=== PATIENT | male | born 1955 | race Caucasian/White ===

== ENCOUNTER 2017-01-25 18:02 | Inpatient (IN) | payer MEDICAID ==
[~2017-01-25] VITALS: Ht 175.3 cm; Wt 63.5 kg
--- NOTE | 2017-01-25 18:10 | NUR ---
R SIDED FACIAL HEMATOMA AND TENDERNESS TO R U Q ABD S/P "I FELL OFF A BENCH WHILE SLEEPING LAST NIGHT". SEEN BY PA AT BS FOR EVAL. NOTED R FOREHEAD LAC. PT AAOX3, ABLE TO FOLLOW COMMANDS. VSS. DENIES HEAD TRAUMA. SAFETY AND COMFORT MEASURES PROVIDED. WILL MONITOR.
--- NOTE | 2017-01-25 19:14 | NUR ---
RECEIVED REPORT FROM CHEVY SHIPMAN FOR GEORGETTE. PAC BERRY AT BEDSIDE FOR EVAL.
[2017-01-25] MEDS ORDERED: IV NS 0.9% 1,000 ML BAG IV ONE (20:00)
[2017-01-25] MEDS ORDERED: CEFTRIAXONE 1GM BAG (ER ONLY) 1 GM/50 ML PIGGYBACK IV ONE (20:00)
[2017-01-25 20:02] LABS: BASOPHILS # (AUTO) 0.1 /CMM (0.0-0.2); BASOPHILS % (AUTO) 0.5 % (0.0-2.0); EOSINOPHILS # (AUTO) 0.5 /CMM (0.0-0.7); EOSINOPHILS % (AUTO) 3.4 % (0.0-6.0); HEMATOCRIT 34 % (39-51); HEMOGLOBIN 11.7 g/dL (13.5-17.5); LYMPHOCYTES # (AUTO) 2.2 /CMM (0.8-4.8); LYMPHOCYTES % (AUTO) 16.1 % (20.0-44.0); MEAN CORPUSCULAR HEMOGLOBIN 30 PG (26.0-33.0); MEAN CORPUSCULAR HGB CONC 34 g/dl (31.0-36.0); MEAN CORPUSCULAR VOLUME 89 fL (80-96); MONOCYTES # (AUTO) 1.7 /CMM (0.1-1.30); MONOCYTES % (AUTO) 12.3 % (2.0-12.0); NEUTROPHILS # (AUTO) 9.4 /CMM (1.8-8.9); NEUTROPHILS % (AUTO) 67.7 % (43.0-81.0); PLATELET COUNT (AUTO) 377 /CMM (150-450); RDW COEFFICIENT OF VARIATION 14.4 (11.5-15.0); RED BLOOD CELL COUNT(AUTO) 3.86 MIL/uL (4.5-6.0); WHITE BLOOD COUNT (AUTO) 13.9 K/uL (4.3-11.0)
[2017-01-25] MEDS ORDERED: CEFTRIAXONE 1GM BAG (ER ONLY) 50 ML IV ONE (20:09)
[2017-01-25 20:12] LABS: CALCIUM, SERUM 7.8 mg/dL (8.5-10.1); CREATININE 1.9 mg/dL (0.6-1.3)
--- NOTE | 2017-01-25 20:38 | NUR ---
PAC BERRY AWARE PT CURRENT BP 202/129 HR 110
--- NOTE | 2017-01-25 20:39 | NUR ---
DR. SANDERS AT BEDSIDE FOR EVAL.
[2017-01-25 20:58] LABS: APPEARANCE,URINE Clear (CLEAR); BILIRUBIN,URINE Negative (NEGATIVE); BLOOD, URINE Small Ery/uL (NEGATIVE); COLOR,URINE Yellow (YELLOW); KETONES,URINE Negative (NEGATIVE); LEUKOCYTE ESTERASE ,URINE Negative (NEGATIVE); NITRITE, URINE Negative (NEGATIVE); PH,URINE 6.5 (5.0-8.0); PROTEIN,URINE Negative (NEGATIVE); UGLUCOSE Negative (NEGATIVE); UROBILINOGEN,URINE 0.2 EU/dL (0.2)
[2017-01-25] MEDS ORDERED: VANCOMYCIN 1 GM in IV D5W 250 ML IV ONE (21:00)
[2017-01-25] MEDS ORDERED: MORPHINE SULFATE INJ 2 MG/ML DISP.SYRIN IV ONE (21:00)
[2017-01-25] MEDS ORDERED: hydrALAZINE HCL IV 20 MG VIAL IV ONE (21:00)
[2017-01-25 21:10] LABS: ALANINE AMINOTRANSFERASE 26 U/L (12-78); ALBUMIN 2.9 g/dL (3.4-5.0); ALKALINE PHOSPHATASE 167 U/L (46-116); ASPARTATE AMINOTRANSFERASE 25 U/L (15-37); BILIRUBIN,DIRECT 0.1 mg/dL (0.0-0.2); BILIRUBIN,TOTAL 0.4 mg/dL (0.2-1.0); INR 0.95 (0.87-1.13); PROTHROMBIN TIME 9.9 SECS (9.5-12.7); TOTAL PROTEIN, SERUM 6.5 g/dL (6.4-8.2)
[2017-01-25] MEDS ORDERED: hydrALAZINE HCL IV 20 MG VIAL ONE (21:11)
[2017-01-25] MEDS ORDERED: MORPHINE SULFATE INJ 4 MG/ML DISP.SYRIN ONE (21:12)
[2017-01-25 21:14] LABS: TROPONIN I < 0.017 ng/mL (0.00-0.056)
[2017-01-25 21:15] LABS: BACTERIA,URINE None seen /HPF (None Seen); SQUAMOUS EPITHELIAL CELL,UR None Seen /HPF (None Seen); WBC,URINE NONE SEEN /HPF (0-3)
[2017-01-25] MEDS ORDERED: Z GUARD REMEDY 2 OZ OINT TP PRN (21:30)
[2017-01-25] MEDS ORDERED: CEFTRIAXONE 1 G in IV D5W 50 ML IV SCH (21:30)
[2017-01-25] MEDS ORDERED: MAG HYDROX/AL HYDROX/SIMETH 30 ML UDC PO PRN (21:30)
[2017-01-25] MEDS ORDERED: MAGNESIUM HYDROXIDE 30 ML UDC PO PRN (21:30)
[2017-01-25] MEDS ORDERED: ONDANSETRON HCL/PF 4 MG/2 ML VIAL IVP PRN (21:30)
[2017-01-25] MEDS ORDERED: ACETAMINOPHEN 325 MG TABLET PO PRN (21:30)
[2017-01-25] MEDS ORDERED: ZOLPIDEM TARTRATE 5 MG TABLET PO PRN (21:30)
[2017-01-25] MEDS ORDERED: VANCOMYCIN 1 GM VIAL ONE (21:33)
[2017-01-25 21:41] LABS: CREATINE KINASE MB 0.5 ng/mL (0-3.6)
--- NOTE | 2017-01-25 21:42 | NUR ---
RADIOLOGY AT BEDSIDE FOR RIGHT FA XRAY
--- NOTE | 2017-01-25 21:44 | NUR ---
DR. SANDERS SPOKE TO DR. HOWARD REGARDING ADMISSION
--- NOTE | 2017-01-25 21:50 | NUR ---
REPORT GIVEN TO RN DISHA FOR TELE BED 328
--- NOTE | 2017-01-25 21:57 | NUR ---
SEE YOUSIF AWARE OF PT CURRENT BP. NNO.
[2017-01-25 22:00] VITALS: BP 165/106
--- NOTE | 2017-01-25 22:00 | NUR ---
PT ASSIGNED TO [facility] [id number]
--- NOTE | 2017-01-25 22:16 | NUR ---
PT TRASNFERED PER ACLS PROTOCOL.
--- NOTE | 2017-01-25 22:30 | NUR ---
BUSINESS ADMINISTRATION INSTRUCTOR ADMIT PT ARRIVED ON UNIT. AAOX3, NO S/S OF RESPIRATORY DISTRESS, DENIES SOB/CP AT THIS TIME. TELE SHOWS ST IN 100'S. C/O PAIN IN RIGHT ARM 08/25. PT AFEBRILE, BP 165/60, MD AWARE. IV INTACT AND PATENT. SKIN ISSUES NOTED. UNABLE TO AMBULATE AT THIS TIME. ORIENTATED TO UNIT AND CALL LIGHT SYSTEM, WILL CONT TO MONITOR. PT STATES THAT HE IS HOMELESS AND HIS BP MEDICATION WAS STOLEN.
[2017-01-25] MEDS: IV 1/2NS 1000 ML 1,000 ML IV PRN (23:05)
--- NOTE | 2017-01-25 23:18 | NUR ---
ROCEPHIAlice HELD. WAS GIVEN IN E.R.
[2017-01-25] MEDS ORDERED: hydrALAZINE HCL 25 MG TABLET PO SCH (23:30)
[2017-01-26] VITALS: BP 174/104
[2017-01-26] MEDS ORDERED: hydrALAZINE HCL 25 MG TABLET ONE (01:04)
--- NOTE | 2017-01-26 04:35 | NUR ---
RN NOTE PAGED EPIC CHILD LIFE SPECIALIST. PT BP IN HIGH 180'S. PT DENIES CP/SOB/DISCOMFORT.
--- NOTE | 2017-01-26 05:10 | NUR ---
RN NOTE MD INFORMED OF PT HIGH BP. ORDERED CLONIDINE 0.1 MG PO Q6HRS STANDING DOSE- TO START NOW. WILL CARRY OUT.
[2017-01-26] MEDS ORDERED: CLONIDINE HCL 0.1 MG TABLET ONE (05:16)
[2017-01-26] MEDS ORDERED: CLONIDINE HCL 0.1 MG TABLET PO SCH (05:30)
[2017-01-26 06:36] LABS: BASOPHILS % (AUTO) 0.4 % (0.0-2.0); EOSINOPHILS # (AUTO) 0.5 /CMM (0.0-0.7); EOSINOPHILS % (AUTO) 3.5 % (0.0-6.0); HEMATOCRIT 38 % (39-51); HEMOGLOBIN 12.5 g/dL (13.5-17.5); LYMPHOCYTES # (AUTO) 1.7 /CMM (0.8-4.8); LYMPHOCYTES % (AUTO) 12.4 % (20.0-44.0); MEAN CORPUSCULAR HEMOGLOBIN 30 PG (26.0-33.0); MEAN CORPUSCULAR HGB CONC 33 g/dl (31.0-36.0); MEAN CORPUSCULAR VOLUME 90 fL (80-96); MONOCYTES # (AUTO) 1.4 /CMM (0.1-1.30); MONOCYTES % (AUTO) 10.3 % (2.0-12.0); NEUTROPHILS # (AUTO) 10.2 /CMM (1.8-8.9); NEUTROPHILS % (AUTO) 73.4 % (43.0-81.0); PLATELET COUNT (AUTO) 345 /CMM (150-450); RDW COEFFICIENT OF VARIATION 15.1 (11.5-15.0); RED BLOOD CELL COUNT(AUTO) 4.19 MIL/uL (4.5-6.0); WHITE BLOOD COUNT (AUTO) 13.9 K/uL (4.3-11.0)
--- NOTE | 2017-01-26 06:45 | NUR ---
RN NOTE PT AAOX3, NO S/S OF ANY DISTRESS AT THIS TIME. MD INFORMED ABOUT PT BP BEING HIGH. TELE SHOWS ST IN 100'S. PT DENIES CP/SOB. IV INTACT AND PATENT, TOLERATING FLUIDS WELL. ALL NEEDS ATTENDED TO, WILL F/U WITH DAY SHIFT FOR GEORGETTE.
[2017-01-26 07:00] LABS: ALBUMIN 2.9 g/dL (3.4-5.0); BILIRUBIN,TOTAL 0.6 mg/dL (0.2-1.0); CALCIUM, SERUM 8.3 mg/dL (8.5-10.1); CREATININE 1.6 mg/dL (0.6-1.3); PHOSPHORUS 3.4 mg/dL (2.5-4.9); POTASSIUM 3.6 mmol/L (3.5-5.1)
--- NOTE | 2017-01-26 07:15 | NUR ---
PERFORMING ARTS TECHNICIANS notes Patient in bed, awake. A/O x3. On Tele monitor, appears comfortable in bed. on oxygen at 2LPM via NC, no SOB. IV 1/2 NS infusing at 125ml/hr, tolerating well. No c/o pain at this time. Call light within reach. Will cont to monitor.
[2017-01-26 07:25] VITALS: BP 166/104
[2017-01-26 08:00] VITALS: BP 166/104
[2017-01-26] MEDS ORDERED: FEE PK DOSING 1 MIN EA MC ONE (08:07)
[2017-01-26] MEDS: hydrALAZINE HCL 25 MG TABLET PO SCH ×3 (08:59→21:29)
--- NOTE | 2017-01-26 11:13 | NUR ---
[facility] Pt. is a 61 year old male who was admitted to [facility] for sepsis. SW met with pt. bedside. Pt. is drowsy and unable to provide any answers at this time. SW to follow up again to assess pt. when he is more alert.
[2017-01-26] MEDS: CLONIDINE HCL 0.1 MG TABLET PO SCH ×2 (12:13→18:03)
[2017-01-26] MEDS: IV 1/2NS 1000 ML 1,000 ML IV PRN (13:20)
--- NOTE | 2017-01-26 14:53 | NUR ---
TOI met with pt. bedside. Pt. is alert and oriented x 3. Pt. appears lethargic and continues to fall asleep during the assessment. SW had to repeat the questions several times for pt. to answer. Pt. states he has been homeless for three weeks. Prior to being homeless, pt. was staying in motels. Pt. would not elaborate his income. Only stated that he has food stamps. Pt. denies using alcohol and drugs. However, pt. smokes approximately 4 to 5 cigarettes per day. Pt. has a right bruise on his eye from falling off a park bench. Pt. has [employer] as his primary insurance. Pt. declines suicidal/homicidal ideations and visual /auditory hallucinations at this time. SW offered pt. bus token and snf placement upon discharge, however pt. declined. Pt. is willing to accept list of homeless resources such as hot meals, showers, transitional housing and shelters. SW to offer the aforementioned resources to pt. once pt. is medically cleared upon discharge. Homeless patient waiver form to be signed by pt. upon discharge.
--- NOTE | 2017-01-26 14:56 | NUR ---
WOUND CARE CONSULT: PT PRESENTS WITH ABRASION TO TOP OF HEAD AND TO RT WRIST AREA, PRESENT ON ADMISSION. PT NOTED TO HAVE VERY LARGE RAISED RED BUMP TO RT FOREARM. DEFER TO MD. ELEVATE ARM. RECOMMENDATIONS MADE FOR WOUND CARE AND SKIN PROTECTION. DISCUSSED WITH NURSING STAFF. PT ABLE TO TURN AND REPOSITION IN BED BUT REFUSED TO TURN FOR SKIN ASSESSMENT OF BUTTOCKS AND BACK. WILL SEE PRAlice. IN AGREEMENT WITH PLAN OF CARE. Addendum: 01/26/17 at 1458 by BASHIR ZENG WNDNU Amended: Links added.
--- NOTE | 2017-01-26 14:57 | NUR ---
Received phone call from Meaghan/LIBERTAD recommends 2gm sodium diet.
[2017-01-26] MEDS: VANCOMYCIN 1 GM in IV D5W 250 ML IV SCH (15:08)
[2017-01-26 16:00] VITALS: BP 149/81
[2017-01-26] MEDS: NEOMY SULF/BACITRAC ZN/POLY 15 GM TUBE TP SCH (16:02)
[2017-01-26 16:56] VITALS: BP 149/81
--- NOTE | 2017-01-26 19:02 | NUR ---
MS RN closing notes Patient in bed, not in distress. On antibiotic with no adverse reaction, afebrile, no diarrhea. IV 1/2 NS infusing at 125ml/hr, tolerating well, no SOB. Right forearm swelling with hematoma elevated with pillows. No c/o pain at this time. Call light within reach. For eval. surgery (Dr. Graf) per Shawn/KENNEL STAFF MEMBER, will endorse to shift commander RN for continuity of care.
[2017-01-26 20:00] VITALS: BP 151/85
--- NOTE | 2017-01-26 20:00 | NUR ---
MS RN NOTES RECEIVED ON BED SLEEPING,AROUSABLE TO VERBAL STIMULI,BREATHING REGULAR,NOT IN ANY FORM OF DISTRESS.PRESENT IVF INFUSING WELL AT 125ML/HR RATE,SITE PATENT ON LFA #18,DVT PUMP IN USED FOR DVT PROPHYLAXIS.ON ISOFLEX BED FOR SKIN MANAGEMENT.RIGHT ARM SWOLLEN NOTED ELEVATED ON PILLOW.CALL LIGHT IN REACH,NEEDS ANTICIPATED.
--- NOTE | 2017-01-26 21:00 | NUR ---
MS RN NOTES STARTED ON ROCEPHIN 1GM IVPB ORDERED.
[2017-01-26] MEDS: CEFTRIAXONE 1 G in IV D5W 50 ML IV SCH (21:23)
[2017-01-26] MEDS: HYDROCODONE/APAP 5/325MG 1 EACH TABLET PO PRN (21:32)
--- NOTE | 2017-01-26 21:32 | NUR ---
MS RN NOTES PAIN MANAGEMENT C/O PAIN 7/10 ON PAIN SCALE VIA RIGHT ARM,MEDICATED WITH NORCO 5/325MG,1 TAB PO ORDERED
--- NOTE | 2017-01-26 22:30 | NUR ---
MS RN NOTES PAIN MANAGEMENT EFFECTIVE 2/10 ON PAIN SCALE.
--- NOTE | 2017-01-27 | NUR ---
MS RN NOTES SLEEPING AROUSABLE TO VERBAL STIMULI.DUE CATAPRES HELD FOR BP 132/87
[2017-01-27] MEDS: IV 1/2NS 1000 ML 1,000 ML IV PRN ×3 (02:21→22:00)
[2017-01-27] MEDS: MORPHINE SULFATE INJ 2 MG/ML DISP.SYRIN IV PRN ×4 (02:25→21:50)
--- NOTE | 2017-01-27 02:25 | NUR ---
MS RN NOTES PAIN MANAGEMENT C/O PAIN 12/25 VIA RIGHT ARM,MEDICATED WITH MORPHINE 4MG IVP ORDERED.WILL MONITOR FOR RELIEF.
[2017-01-27] MEDS: hydrALAZINE HCL 25 MG TABLET PO SCH ×3 (04:56→20:44)
--- NOTE | 2017-01-27 04:59 | NUR ---
MS RN NOTES CLAIMED NO PAIN AT THIS TIME
--- NOTE | 2017-01-27 04:59 | NUR ---
MS RN NOTES BP 171/102,PULSE 82,DENIES ANY PAIN.DUE APRESOLINE 25MG PO ADMINISTERED SCHEDULED.
--- NOTE | 2017-01-27 05:30 | NUR ---
MS RN NOTES DUE CLONIDINE 0.1MG PO ADMINISTERED FOR HIGH BLOOD PRESSURE 171/102
[2017-01-27] MEDS: CLONIDINE HCL 0.1 MG TABLET PO SCH ×4 (05:32→17:43)
--- NOTE | 2017-01-27 06:41 | NUR ---
MS RN NOTES PAIN MANAGEMENT EFFECTIVE. IVF INFUSING.IN NO ACUTE DISTRESS.WANTS TO BE D/C TO SNF ONCE MEDICALLY CLEARED.5TH GRADE TEACHER FOR PLACEMENT.CALL LIGHT IN REACH,NEEDS ATTENDED.WILL ENDORSE TO DAYNURSE FOR GEORGETTE.
[2017-01-27 07:31] LABS: CREATININE 1.5 mg/dL (0.6-1.3); POTASSIUM 4.2 mmol/L (3.5-5.1)
--- NOTE | 2017-01-27 07:49 | NUR ---
MS RN OPENING NOTE SBAR REPORT RECEIVED ON PATIENT. PATIENT IS RESTING IN BED COMFORTABLY WITH EYES OPEN. NON-LABORED BREATHING, CHEST RISING EQUALLY BILATERALLY. DENIES PAIN/DISCOMFORT AT THIS TIME. ALL NEEDS ARE ATTENDED TO. ALL BELONGINGS WITHIN REACH. BED IS LOCKED IN LOWEST POSITION, SIDE RAILS UP X 2, HIGH FOWLERS POSITION. WILL CONTINUE MONITORING.
[2017-01-27 08:00] VITALS: BP 157/100
[2017-01-27] MEDS: VANCOMYCIN 1 GM in IV D5W 250 ML IV SCH (09:39)
[2017-01-27] MEDS: NEOMY SULF/BACITRAC ZN/POLY 15 GM TUBE TP SCH (09:39)
--- NOTE | 2017-01-27 10:30 | NUR ---
ms rn notes Previous diet discontinued and change it to 2gNa diet. All orders carried out and noted. Will continue to monitor accordingly.
[2017-01-27 16:00] VITALS: BP 163/94
[2017-01-27] MEDS: LACTOBACILLUS RHAMNOSUS GG 1 EACH CAP.SPRINK PO SCH (17:44)
--- NOTE | 2017-01-27 19:14 | NUR ---
MS RN CLOSING NOTE PATIENT IS RESTING IN BED COMFORTABLY WITH EYES OPEN WATCHING TV. BED IS LOCKED IN LOWEST POSITION, SIDE RAILS UP X2. PATIENT IN ROSEN;S POSITION. AL NEEDS ATTENDED TO. ALL BELONGING WITHIN REACH. DENIES PAIN/DISCOMFORT AT THIS TIME. WILL ENDORSE TO SHUTTLECOCK ASSEMBLER NURSE FOR GEORGETTE.
[2017-01-27] MEDS: CEFTRIAXONE 1 G in IV D5W 50 ML IV SCH (19:24)
--- NOTE | 2017-01-27 19:45 | NUR ---
MS RN NOTES RECEIVED ON BED A/O X4,ABLE TO AMBULATE TO THE TOILET,SALINE LOCK LEFT WRIST INTACT AND PATENT.IVF INFUSING WELL.DENIES PAIN AT THE MOMENT.STILL WITH RIGHT ARM HEMATOMA NOTED.FACIAL BRUISE NOTICEABLE.SCD MACHINE UN USED FOR DVT PROPHYLAXIS.CALL LIGHT IN REACH,NEEDS ANTICIPATED.
[2017-01-27 20:00] VITALS: BP 168/87
[2017-01-27 20:19] VITALS: BP 168/87
--- NOTE | 2017-01-27 21:50 | NUR ---
MS RN NOTES PAIN MANAGEMENT C/O PAIN 9/10 ON PAIN SCALE VIA RIGHT ARM,MEDICATED WITH MORPHINE 4MG IVP ORDERED
[2017-01-28] MEDS: CLONIDINE HCL 0.1 MG TABLET PO SCH ×4 (00:37→17:00)
[2017-01-28] MEDS: VANCOMYCIN 1 GM in IV D5W 250 ML IV SCH (03:00)
--- NOTE | 2017-01-28 03:18 | NUR ---
MS RN NOTES VANCO TROUGH 22 ,DOSE HELD AT 3AM PER PROTOCOL LEVEL
--- NOTE | 2017-01-28 05:00 | NUR ---
MS RN NOTES BP 181/108,DENIES CHEST PAIN,DUE APRESOLINE 25MG PO GIVEN
[2017-01-28] MEDS: hydrALAZINE HCL 25 MG TABLET PO SCH ×3 (05:01→21:42)
[2017-01-28] MEDS: HYDROCODONE/APAP 5/325MG 1 EACH TABLET PO PRN ×4 (05:07→21:42)
--- NOTE | 2017-01-28 05:07 | NUR ---
MS RN NOTES PAIN MANAGEMENT C/O PAIN VIA RIGHT ARM 5/10 ON PAIN SCALE.MEDICATED WITH NORCO 5/325.1TAB PO ORDERED FOR MODERATE PAIN.
--- NOTE | 2017-01-28 06:54 | NUR ---
MS RN NOTES PAIN MANAGEMENT EFFECTIVE,BRP WITH ASSIST.IVF IN PROGRESS.CALL LIGHT IN REACH,NEEDS ATTENDED.WILL ENDORSE TO DAY NURSE FOR GEORGETTE.
[2017-01-28 07:12] LABS: CALCIUM, SERUM 8.2 mg/dL (8.5-10.1); CREATININE 1.4 mg/dL (0.6-1.3)
[2017-01-28 07:17] LABS: BASOPHILS % (AUTO) 0.4 % (0.0-2.0); EOSINOPHILS # (AUTO) 0.8 /CMM (0.0-0.7); EOSINOPHILS % (AUTO) 7.6 % (0.0-6.0); HEMATOCRIT 34 % (39-51); HEMOGLOBIN 11.4 g/dL (13.5-17.5); LYMPHOCYTES # (AUTO) 1.4 /CMM (0.8-4.8); LYMPHOCYTES % (AUTO) 13.2 % (20.0-44.0); MEAN CORPUSCULAR HEMOGLOBIN 30 PG (26.0-33.0); MEAN CORPUSCULAR HGB CONC 34 g/dl (31.0-36.0); MEAN CORPUSCULAR VOLUME 90 fL (80-96); MONOCYTES # (AUTO) 1.2 /CMM (0.1-1.30); MONOCYTES % (AUTO) 11.1 % (2.0-12.0); NEUTROPHILS # (AUTO) 7.3 /CMM (1.8-8.9); NEUTROPHILS % (AUTO) 67.7 % (43.0-81.0); PLATELET COUNT (AUTO) 362 /CMM (150-450); RDW COEFFICIENT OF VARIATION 14.9 (11.5-15.0); RED BLOOD CELL COUNT(AUTO) 3.79 MIL/uL (4.5-6.0); WHITE BLOOD COUNT (AUTO) 10.7 K/uL (4.3-11.0)
--- NOTE | 2017-01-28 07:40 | NUR ---
RN NOTES RECEIVED PT. PT IS STABLE AND SLEEPING IN BED. NO S/S OF DISTRESS OR SOB. NO C/O PAIN AT THIS TIME. IV ACCESS LOCATED ON LEFT FOREARM 18G, RUNNING 1/2 NS AT 125 ML/HR. PT HAS BEEN MEDICALLY CLEARED BY MDs, AWAITING PLACEMENT BY CASE MANAGEMENT. SAFETY MEASURES IN PLACE, CALL LIGHT WITHIN REACH. WILL CONTINUE TO MONITOR.
[2017-01-28 08:00] VITALS: BP 144/72
[2017-01-28] MEDS: LACTOBACILLUS RHAMNOSUS GG 1 EACH CAP.SPRINK PO SCH ×2 (09:21→17:00)
[2017-01-28] MEDS: NEOMY SULF/BACITRAC ZN/POLY 15 GM TUBE TP SCH (09:22)
--- NOTE | 2017-01-28 10:48 | NUR ---
SW met with pt. bedside to discuss discharge plan. SW offered pt. homeless assisted placement, however pt. declined. SW gave pt. the following resources: List of homeless resource directory that consists of hot meals, showers, transitional and emergency housing; list of food rose which include [employer] [place] , [employer] ; List of homeless shelters which include [facility] , [employer] [place] ( [phone]; Homeless ACCESS centers which include [employer] [facility] , [facility] . Homeless Patient Waiver Form to be signed by patient prior to discharge. Pt. will require bus tokens upon discharge.
[2017-01-28] MEDS ORDERED: VANCOMYCIN 0.75 GM in IV D5W 250 ML IV SCH (12:00)
[2017-01-28 16:00] VITALS: BP 158/80
[2017-01-28] MEDS: IV 1/2NS 1000 ML 1,000 ML IV PRN (18:04)
--- NOTE | 2017-01-28 18:33 | NUR ---
RN CLOSING NOTES PT IS IN BED RESTING. A/OX4. NO S/S OF DISTRESS OR SOB. NO C/O PAIN AT THIS MOMENT. WOUNDS CLEANSED WITH SALINE AND APPLIED WITH TRIPLE ANTIBIOTIC CREAM PER ORDER. ALL PATIENT NEEDS ANTICIPATED AND MET. WILL ENDORSE TO DIRECTOR OF CLINICAL APPLICATIONS FOR GEORGETTE.
[2017-01-28 20:00] VITALS: BP 157/80
--- NOTE | 2017-01-28 20:00 | NUR ---
MS TV TECHNICIAN NOTES RECEIVED PT IN BED RESTING WITH EYES CLOSED , BREATHING EVEN AND NON-LABORED NOT IN ANY DISTRESS NOTED.IVF STILL INFUSING ON HIS LEFT FOREARM NS AT 125ML/HR ,NO REDNESS NOTED . KEPT HIM WARM AND COMFORTABLE AT ALL TIMES. WILL CONTINUE TO MONITOR. PLACE CALL LIGHT AT REACH.
[2017-01-28] MEDS: CEFTRIAXONE 1 G in IV D5W 50 ML IV SCH (21:28)
--- NOTE | 2017-01-28 21:46 | NUR ---
COVER REMOVER/NOTES/PAIN MGT. NORCO TABLET GIVEN PER PT REQUESTED FOR HIS PAIN ON HIS RIGHT HEAD AND ARM. ROUTINE MED ALSO GIVEN . KEPT HIM WARM AND COMFORTABLE AT ALL TIMES. WILL RE-ASSESS LATER.
--- NOTE | 2017-01-28 22:42 | NUR ---
CEO AND PRESIDENT/RE-ASSESMENT NOTES CHECKED PT HE'S WATCHING TV AT THIS TIME, PAIN MUCH BETTER , IVF STILL INFUSING. KEPT HIM WARM AND COMFORTABLE AT ALL TIMES. WILL CONTINUE TO MONITOR.
[2017-01-29] MEDS: CLONIDINE HCL 0.1 MG TABLET PO SCH ×3 (01:36→12:33)
[2017-01-29] MEDS: MORPHINE SULFATE INJ 2 MG/ML DISP.SYRIN IV PRN ×2 (01:44→01:47)
--- NOTE | 2017-01-29 01:47 | NUR ---
MACHINIST 2ND SHIFT/NOTES C/O HEADACHE AND ARM PAIN , MORPHINE GIVEN KOURTNEY 1VP ORDERED .IVF STILL INFUSING. KEPT HIM WARM AND COMFORTABLE AT ALL TIMES. WILL CONTINUE TO MONITOR. PLACE CALL LIGHT AT REACH.
[2017-01-29] MEDS: hydrALAZINE HCL 25 MG TABLET PO SCH ×2 (05:44→12:33)
[2017-01-29] MEDS: IV 1/2NS 1000 ML 1,000 ML IV PRN (05:45)
--- NOTE | 2017-01-29 07:15 | NUR ---
MS RN OPENING NOTES RECEIVED PT FROM NIGHTSHIFT NURSE IN STABLE CONDITION. PT IS A/O X4. NO SOB OR SIGNS OF DISTRESS NOTED. BREATHING IS EVEN AND UNLABORED. CURRENT BP IS 159/85. PT DENIES ANY CHEST PAIN OR HEADACHE AT THIS TIME. WILL CONTINUE TO MONITOR BP. IV ON LEFT FOREARM 19G IS PATENT AND INTACT. IV FLUIDS ARE OFF AT THE MOMENT DUE TO HIGH BP. BED IN LOW LOCKED POSITION, SIDE RAILS UP X2, CALL LIGHT WITHIN REACH. WILL CONTINUE TO MONITOR.
--- NOTE | 2017-01-29 07:30 | NUR ---
DIVISION TOLL WIRE CHIEF/CLOSING NOTES PT AWAKE AND ALERT AT THIS TIME WATCHING TV, PAIN SUBSIDE AND HE STATED"THANK YOU . ALL DUE MEDS GIVEN AND ALL NEEDS MET. SLEPT WELL AFTER PAIN SHOT GIVEN. IVF STILL INFUSING AND KEPT HIM WARM AND COMFORTABLE AT ALL TIMES. PLACE CALL LIGHT AT REACH. WILL ENDORSE TO AM NURSE FOR CONTINUITY OF CARE.
[2017-01-29 07:48] LABS: BASOPHILS # (AUTO) 0.1 /CMM (0.0-0.2); BASOPHILS % (AUTO) 0.6 % (0.0-2.0); EOSINOPHILS # (AUTO) 0.7 /CMM (0.0-0.7); EOSINOPHILS % (AUTO) 7.6 % (0.0-6.0); HEMATOCRIT 33 % (39-51); HEMOGLOBIN 10.9 g/dL (13.5-17.5); LYMPHOCYTES # (AUTO) 1.9 /CMM (0.8-4.8); LYMPHOCYTES % (AUTO) 19.5 % (20.0-44.0); MEAN CORPUSCULAR HEMOGLOBIN 30 PG (26.0-33.0); MEAN CORPUSCULAR HGB CONC 33 g/dl (31.0-36.0); MEAN CORPUSCULAR VOLUME 90 fL (80-96); MONOCYTES # (AUTO) 1.2 /CMM (0.1-1.30); MONOCYTES % (AUTO) 12.7 % (2.0-12.0); NEUTROPHILS # (AUTO) 5.8 /CMM (1.8-8.9); NEUTROPHILS % (AUTO) 59.6 % (43.0-81.0); PLATELET COUNT (AUTO) 342 /CMM (150-450); RDW COEFFICIENT OF VARIATION 15.6 (11.5-15.0); RED BLOOD CELL COUNT(AUTO) 3.66 MIL/uL (4.5-6.0); WHITE BLOOD COUNT (AUTO) 9.8 K/uL (4.3-11.0)
[2017-01-29 08:00] VITALS: BP 159/85
[2017-01-29 08:09] LABS: CALCIUM, SERUM 8.1 mg/dL (8.5-10.1); CREATININE 1.4 mg/dL (0.6-1.3); POTASSIUM 4.3 mmol/L (3.5-5.1)
[2017-01-29] MEDS: LACTOBACILLUS RHAMNOSUS GG 1 EACH CAP.SPRINK PO SCH (08:29)
[2017-01-29] MEDS: NEOMY SULF/BACITRAC ZN/POLY 15 GM TUBE TP SCH (08:30)
--- NOTE | 2017-01-29 11:20 | NUR ---
TOI met with pt. bedside to discuss discharge plan and give him homeless resources. Pt. declined homeless group home placement when asked again by TOI. TOI gave pt. the following resources: List of homeless resource directory that consists of hot meals, showers, transitional and emergency housing; list of food rose which include [employer] [place] , [employer] ; List of homeless shelters which include [employer] [facility] [place] [facility] , [employer] [place] ; Homeless ACCESS centers which include [facility] , [facility] . Homeless Patient Waiver Form was signed by pt. and placed in pt's chart. TOI informed pt. his nurse will give him the bus tokens prior to discharge. TOI informed VENKATESH Lemos regarding discharge plan and to give pt. the bus tokens upon discharge. TOI also requested for pt. to have an early lunch.
[2017-01-29 12:33] VITALS: BP 160/97
--- NOTE | 2017-01-29 12:59 | NUR ---
MS CHVEY CLOSING NOTES PT WAS DISCHARGED FROM THE FACILITY IN STABLE CONDITION. ALL NEEDS WERE MET DURING SHIFT AND ORDERS CARRIED OUT ACCORDINGLY. ALL DISCHARGE INSTRUCTIONS WERE THOROUGHLY DISCUSSED WITH THE PATIENT. PT VERBALIZED UNDERSTANDING OF ALL DISCHARGE INSTRUCTIONS. BELONGINGS FORM WAS SIGNED BY PATIENT. PT LEFT WITH ALL BELONGINGS APART FROM A POCKET KNIFE AND TWO LIGHTERS. THESE ITEMS COULD NOT BE FOUND. CHARGE NURSE WAS MADE AWARE ALONG WITH MRS. GRIFFIN. PT EXPRESSED THAT HE WAS OKAY TO LEAVE WITHOUT THEM. ALL PAPERWORK WAS SIGNED BY THE PATIENT. BUS TOKEN WERE GIVEN TO THE PATIENT FOR TRANSPORTATION. WRITTEN PRESCRIPTION WAS ALSO TAKEN BY THE PATIENT. ROSENDA THE TOBACCO SIEVE OPERATOR SAFELY ESCORTED THE PT TO THE FRONT LOBBY AND WATCHED HE LEFT THE FACILITY SAFELY.
== END 2017-01-29 12:55 | disposition home or self-care (01) | DRG 383 ==
LOC: ER 18:05 → TELE 21:41 → MED 01-26 08:09
PROVIDERS: ADMIT Internal Medicine; ATTEND Internal Medicine
DX: L03.211 Cellulitis of face (principal); N17.0 Acute kidney failure with tubular necrosis; G93.40 Encephalopathy, unspecified; E44.0 Moderate protein-calorie malnutrition; G90.8 Other disorders of autonomic nervous system; I12.9 Hypertensive chronic kidney disease with stage 1 through stage 4 chronic kidney disease, or unspecified chronic kidney disease; S00.11XA Contusion of right eyelid and periocular area, initial encounter; D63.8 Anemia in other chronic diseases classified elsewhere; S50.11XA Contusion of right forearm, initial encounter; Z87.891 Personal history of nicotine dependence; Z59.0 Homelessness; W07.XXXA Fall from chair, initial encounter; Y92.480 Sidewalk as the place of occurrence of the external cause; L03.113 Cellulitis of right upper limb; I16.0 Hypertensive urgency; N18.9 Chronic kidney disease, unspecified; E86.1 Hypovolemia; F10.10 Alcohol abuse, uncomplicated; Y90.9 Presence of alcohol in blood, level not specified; R53.81 Other malaise; Z91.81 History of falling
CPT/HCPCS: 36415; 70450-TC; 70486-TC; 71010-TC; 73090-TC; 80048-TC; 80053-TC; 80061-TC; 80076-TC; 80202-TC; 81000-TC; 82550-TC; 82553-TC; 83605-TC; 83735-TC; 84100-TC; 84484-TC; 85025-TC; 85730-TC; 87040-TC; 87081-TC; 87086-TC; 93307-TC; A4606; A6402; J0360; J0696; J2270; J3370; J3490; J7030; J7060; Z7610